=== PATIENT | female | born 1980 | race African-American/Black ===

== ENCOUNTER 2016-12-21 21:25 | Observation (INO) ==
[2016-12-21] MEDS ORDERED: SODIUM CHLORIDE 0.9% 500 ML IV STA (22:06)
--- NOTE | 2016-12-21 22:08 | Emergency Department Note ---
Cedric Salazar Brittany, am scribing for, and in the presence of, Aric Fields MD 22:06. Diamond Salazar Charles R, MD, personally performed the services described in this documentation, ascribed by Soraida Steele in my presence, and it is both accurate and complete . Arrival - Arrival Chief Complaint: Seizure Stated Complaint: seizure ED Nursing Triage Note: Patient to room via ems. EMS states that they were called for a seizure. EMS states that the kids on scene state that patient was shaking for about 10 mins. Patient is A&O x2 she is a little confused. Patient is also complaining of CP, CONTRERAS, and dizziness. Mode of Arrival: Stretcher Limitations: No Limitations Source: Patient, EMS, RN Notes Reviewed Time Seen by Provider: 12/21/16 21:45 - History of Present Illness HPI Narrative: Ms. 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 EMS reports that upon their arrival to the scene children present stated that patient was shaking for about 10 minutes. In room patient does not appear post ictal and is no acute distress. She cannot recall this episode. She complains of a severe headache and reports that this is not typical for her s/p seizure activity. Patient is unsure if she may have hit her head during this episode. Patient reports that she is compliant with her Dilantin and Keppra. On the monitor she is hypertensive with a blood pressure reading of 153/103 mmHg, she denies any medical history significance for HTN. She has no other complaint/pain. Onset (ago): minute(s) Consistency: now resolved Allergies/Adverse Reactions: Allergies Allergy/AdvReac Type Severity Reaction Status Date / Time Penicillins Allergy Unknown Unknown/Unable Verified 12/21/16 21:30 to obtain Home Medications: Home Medications Medication Instructions Recorded Confirmed Type levETIRAcetam [Keppra Xr] 1,500 mg PO BID 11/09/15 12/21/16 History Phenytoin ER Cap [Dilantin Cap] 100 mg PO TID 11/05/16 11/05/16 History Review of System - Review of System 12 point system: reviewed and no additional remarkable complaints except as stated - Review of System Constitutional: Absent: chills, diaphoresis, fever, weakness Eyes: Absent: vision change Head/Ears/Nose/Throat: Absent: nasal drainage, sore throat Respiratory: Absent: respiratory distress Cardiovascular: Absent: chest pain, palpitations Gastrointestinal: Absent: abdominal pain, nausea, vomiting, diarrhea, constipation Genitourinary female: Absent: dysuria, frequency, urgency Musculoskeletal: Absent: arm pain, back pain, leg pain, neck pain Skin: Absent: rash Neurological: Present: as per HPI, headache Psychiatric: Absent: anxiety, depression Hematological/Lymphatic: Absent: easy bleeding, easy bruising Medical,Surgical,& Family Hx - Medical History Cardio: History of: CHF, Hypertension Neurology: History of: Seizures, Vertigo Other: History of: Miscellaneous Medical Problems (morbid obesity) - Social History Smoking Status: Never smoker Frequency of Alcohol Use: None Type of Drug Use: None Exam Vital Signs: Vital Signs Temperature 97.8 F 12/21/16 21:26 Pulse Rate 85 12/21/16 22:05 Respiratory Rate 18 12/21/16 22:05 Blood Pressure 159/86 12/21/16 22:05 O2 Sat by Pulse Oximetry 100 12/21/16 21:26 - General General appearance: alert, in no apparent distress, obese (morbidly obese) - Head Head exam: Present: atraumatic, normocephalic, normal inspection - Eye Eye exam: Present: normal appearance, PERRL, EOMI - ENT ENT exam: Present: normal exam, normal oropharynx - Neck Neck exam: Present: normal inspection, full ROM, trachea midline - Chest Chest inspection: Present: normal inspection, symmetric chest wall rise - Respiratory Respiratory exam: Present: normal lung sounds bilaterally. Absent: rales, rhonchi, wheezes - Cardiovascular Cardiovascular exam: Present: regular rate, normal rhythm, normal heart sounds. Absent: murmur, rubs, gallop - Abdominal Exam Abdominal exam: Present: soft, normal bowel sounds, other (obese abdomen). Absent: distention, tenderness - Extremities Exam Extremities exam: Present: full ROM, pedal edema (+1 edema bilateral lower extremities) - Back Exam Back exam: Present: normal inspection - Neurological Exam Neurological exam: Present: alert, oriented X3, CN II-XII intact. Absent: motor sensory deficit - Psychiatric Psychiatric exam: Present: normal affect, normal mood - Skin Skin exam: Present: warm, dry, intact, normal color Course - Reevaluation(s) Reevaluation #1: New information from the family member patient was slurred speech yesterday and talking out of her head according to family member. This is not something that she usually does. She has history of heart failure hypertension she subtherapeutic on Dilantin level there is a new finding on CT that may be suggestive of a stroke patient placed in the hospital for a workup for neuro consult for possible subacute stroke Time: 23:41 - Consultations Consultation #1: Hospitalist will admit patient Time: 23:42 Results - Labs CBC & BMP: 12/21/16 22:10 Lab Results: I have reviewed the patients labs Labs: Laboratory Tests 12/21/16 22:10 WBC 7.6 RBC 4.56 Hgb 10.2 L Hct 34.4 L MCV 75.4 L MCH 22 L MCHC 29.7 L Plt Count 311 Laboratory Tests 12/21/16 23:01 POC Glucose 91 - Diagnostic Findings Procedure: CT: report reviewed by me (CT Head: New hypoattenuation within the right centrum semiovale has differential considerations including demyelinating disease as well as subacut infarction. MRI brain without intravenous contrast administration is recommended for further characterization.) Critical Care Time Critical Care Time: Yes Total Critical Care Time: 60 Disposition Clinical Impression: Seizure, Subtherapeutic serum dilantin level, New onset confusion, Uncontrolled hypertension, Possible CVA new Case discussed with: patient, patient's family Disposition: Still a Patient Condition: Guarded Time of Disposition: 23:43
[2016-12-21 22:18] LABS: Basophils % 0.3 % (0.0-0.8); Eosinophils # 0.3 10*3/uL (0.0-0.87); Eosinophils % 3.4 % (0.00-10.9); Hematocrit 34.4 VOL% (35.7-47.0); Hemoglobin 10.2 GM/DL (12.0-16.0); Immature Granulocytes % 0.1 %; Immature Granulocytes Absolute 0.01 #; Lymphocytes # 2.2 10*3/uL (1.4-4.0); Lymphocytes % 29.4 % (21.3-54.2); Mean Corpuscular HGB Conc 29.7 GM/DL (32-36); Mean Corpuscular Hemoglobin 22 PG (27-34); Mean Corpuscular Volume 75.4 FL (87-102); Mean Platelet Volume 11.6 FL (9.6-12.0); Monocytes # 0.4 10*3/uL (0.11-0.8); Monocytes % 5.3 % (1.7-12.7); Neutrophils # 4.7 10*3/uL (1.4-7.4); Neutrophils % 61.5 % (38.7-73.9); Platelet Count 311 T/CUMM (130-400); Red Blood Count 4.56 MC/CUMM (3.8-5.5); Red Cell Distribution Width 15.9 % (9.3-17.3); White Blood Count 7.6 T/CUMM (4-12)
--- NOTE | 2016-12-21 22:55 | CT Report ---
CT head/brain wo con Indication: Seizure. Comparison: CT head 07/28/2016. Technique: CT of the brain was performed without administration of intravenous contrast. The CT examination was performed using one or more of the following dose reduction techniques: Automatic exposure control, adjustment of the mA and kV according to patient size, use of acute or iterative reconstruction techniques. Findings: There is a small focal area of hypoattenuation within the right centrum semiovale not previously demonstrated. This measures 13 mm in transverse dimension and 7.8 mm in AP dimension. Cavum septum callosum is demonstrated. The basal cisterns are patent. No significant abnormality is demonstrated to involve the posterior fossa or cerebellum. Fluid attenuation midline posterior fossa has differential considerations including arachnoid cyst, megacisterna magna, and Dandy-Walker variant. Orbits and globes demonstrate no evidence of significant pathology. The paranasal sinuses are clear. No significant abnormality is demonstrated to involve the mastoid air cells. The calvarium and overlying soft tissues demonstrate no evidence of acute pathology. Impression: 1. New hypoattenuation within the right centrum semiovale has differential considerations including demyelinating disease as well as subacute infarction. MRI brain without intravenous contrast administration is recommended for further characterization. 12/21/2016 10:50 PM PROCEDURE INTERPRETED AT [facility] DEPARTMENT OF RADIOLOGY Final Report Signed by: Dr. Marshal Benson
[2016-12-21] MEDS ORDERED: ASPIRIN EC 325 MG TABLET PO STA (23:28)
[2016-12-21] MEDS ORDERED: ASPIRIN EC 325 MG TABLET PO ONE (23:34)
[2016-12-21 23:40] LABS: Alanine Aminotransferase 17 U/L (13-56); Albumin 3.3 G/DL (3.4-5.0); Alkaline Phosphatase 93 U/L (45-117); Aspartate Amino Transferase 15 U/L (0-37); Bilirubin,Total < 0.39 MG/DL (0.2-1.0); Blood Urea Nitrogen 15 MG/DL (7-18); Calcium 8.2 MG/DL (8.5-10.1); Glucose 97 MG/DL (74-106); Magnesium 1.9 MG/DL (1.8-2.4); Osmolality,Calculated 281.3 MOS/KG (273-304); Potassium 4.1 MMOL/L (3.5-5.1); Sodium 141 MMOL/L (136-145); Total Protein 7.4 G/DL (6.4-8.3)
[2016-12-21] MEDS ORDERED: hydrALAZINE 20 MG/1 ML VIAL IV STA (23:44)
[2016-12-21] MEDS ORDERED: hydrALAZINE 20 MG/1 ML VIAL ONE (23:45)
[2016-12-22] MEDS ORDERED: LABETALOL 20 MG/4 ML SYRINGE IV PRN
--- NOTE | 2016-12-22 00:15 | Hospitalist History & Physical ---
Assessment and Plan (1) Seizure Status: Acute Current Visit: Yes (2) Subtherapeutic serum dilantin level Status: Acute Current Visit: Yes (3) Uncontrolled hypertension Status: Acute Assessment and plan: Our plan for this patient will be admitting her to monitored bed. Will get an DC her Dilantin and put her on Vimpat. We will continue her Keppra. Will consult neurology for his input. We will get an MRI of if possible patient is very obese and I do not know if she will fit in the machine. Check a carotid ultrasound reevaluate patient in the morning and adjust plans appropriate. Current Visit: Yes History of Present Illness Chief complaint: Seizure History of present illness: Ms. Curran is a 36 year old female with past medical history consists of seizure disorder and possible congestive heart failure who was in her normal state of health until yesterday. Information was obtained from the ER record since no family was available. Patient seems like she is a poor historian. According to what was told the ER physician patient was talking slurred yesterday. Today the family reported that she has been shaking all over to 10 minutes and that she was talking out of her head. She is currently appropriate no seizure has been witnessed while she is here. I was consulted for admission because her CT scan showed a possible acute stroke. Patient has no neurological deficits. Home Medications Medication Instructions Recorded Confirmed Type levETIRAcetam [Keppra Xr] 1,500 mg PO BID 11/09/15 12/21/16 History Phenytoin ER Cap [Dilantin Cap] 100 mg PO TID 11/05/16 11/05/16 History Allergies Allergy/AdvReac Type Severity Reaction Status Date / Time Penicillins Allergy Unknown Unknown/Unable Verified 12/21/16 21:30 to obtain Medical,Surgical,& Family Hx - Medical History Cardio: History of: CHF, Hypertension Neurology: History of: Seizures, Vertigo Other: History of: Miscellaneous Medical Problems (morbid obesity) - Surgical History Surgical History: noncontributory (none) - Family History Family History: Reports;: Family Cancer, Family Diabetes, Family Heart Disease - Social History Smoking Status: Never smoker Frequency of Alcohol Use: None Type of Drug Use: None 12 point system: reviewed and no additional remarkable complaints except as stated Exam - Constitutional Vitals: Period Temp Pulse Resp BP Sys/Goodman Pulse Ox Last 24 Hr 97.8 F-97.8 F 85-86 16-20 157-159/86-98 100 - General General appearance: alert, in no apparent distress, obese (morbidly obese) - Head Head exam: Present: atraumatic, normocephalic, normal inspection - Eye Eye exam: Present: normal appearance, PERRL, EOMI - ENT ENT exam: Present: normal exam, normal oropharynx - Neck Neck exam: Present: normal inspection, full ROM, trachea midline - Chest Chest inspection: Present: normal inspection, symmetric chest wall rise - Respiratory Respiratory exam: Present: normal lung sounds bilaterally. - Cardiovascular Cardiovascular exam: Present: regular rate, normal rhythm, normal heart sounds. - Abdominal Exam Abdominal exam: Present: soft, normal bowel sounds, other (obese abdomen) - Extremities Exam Extremities exam: Present: full ROM, pedal edema - Back Exam Back exam: Present: normal inspection - Neurological Exam Neurological exam: Present: alert, oriented X3, CN II-XII intact. Absent: motor sensory deficit - Psychiatric Psychiatric exam: Present: normal affect, normal mood - Skin Skin exam: Present: warm, dry, intact, normal color Results - Labs CBC & BMP: 12/21/16 22:10 12/21/16 22:10
[2016-12-22] MEDS ORDERED: LACOSAMIDE 50 MG TABLET PO ONE ×2 (00:30→22:07)
[2016-12-22] MEDS: levETIRAcetam 500 MG TABLET PO SCH ×3 (02:03→20:35)
[2016-12-22 06:34] LABS: Risk Ratio 2.77; VLDL CHOLESTEROL 11.2 MG/DL
[2016-12-22 06:47] LABS: Basophils % 0.3 % (0.0-0.8); Eosinophils # 0.3 10*3/uL (0.0-0.87); Eosinophils % 3.7 % (0.00-10.9); Hematocrit 31.8 VOL% (35.7-47.0); Hemoglobin 9.5 GM/DL (12.0-16.0); Immature Granulocytes % 0.4 %; Immature Granulocytes Absolute 0.03 #; Lymphocytes # 2.1 10*3/uL (1.4-4.0); Lymphocytes % 31.8 % (21.3-54.2); Mean Corpuscular HGB Conc 29.9 GM/DL (32-36); Mean Corpuscular Hemoglobin 22 PG (27-34); Mean Corpuscular Volume 74.5 FL (87-102); Mean Platelet Volume 12.1 FL (9.6-12.0); Monocytes # 0.4 10*3/uL (0.11-0.8); Monocytes % 6.3 % (1.7-12.7); Neutrophils # 3.9 10*3/uL (1.4-7.4); Neutrophils % 57.5 % (38.7-73.9); Platelet Count 238 T/CUMM (130-400); Red Blood Count 4.27 MC/CUMM (3.8-5.5); Red Cell Distribution Width 15.6 % (9.3-17.3); White Blood Count 6.7 T/CUMM (4-12)
[2016-12-22 07:21] LABS: Calcium 8.2 MG/DL (8.5-10.1); Osmolality,Calculated 276.5 MOS/KG (273-304); Potassium 3.8 MMOL/L (3.5-5.1)
--- NOTE | 2016-12-22 07:58 | EKG Report ---
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
[2016-12-22] MEDS: ENOXAPARIN 40 MG/0.4 ML SYRINGE SUBCUT SCH (09:24)
[2016-12-22] MEDS: LACOSAMIDE 50 MG TABLET PO SCH ×2 (09:24→20:34)
[2016-12-22] MEDS: ASPIRIN EC 81 MG TABLET PO SCH (09:24)
--- NOTE | 2016-12-22 12:18 | Neurology Consult Note ---
History of Present Illness History of present illness: Ms. Curran is a 36 year old right-handed -Filipino lady with past medical history significant for seizure disorder and possible congestive heart failure who was in her normal state of health until yesterday. Her sister reported that she was diagnosed with seizure disorder for almost 3-1/2 years ago[address] saw Dr. Storey at first and then later transfer her care to [facility] and see the neurologist up there at the [facility]. According to her sister patient was talking slurred yesterday. She was very confused and disoriented that lasted for 20-30 minutes. It is not clear when of the last time she had a full- blown seizure. They reported that she has been taking Dilantin and Keppra but her Dilantin level is subtherapeutic at 2 and it is not clear whether she is compliant on not. She has also been started on Vimpat and I am not sure she was taking that at home and not however family is not aware of that. For some reason she is not on Dilantin anymore. Home Medications Medication Instructions Recorded Confirmed Type levETIRAcetam [Keppra Xr] 1,500 mg PO BID 11/09/15 12/21/16 History Phenytoin ER Cap [Dilantin Cap] 100 mg PO TID 11/05/16 11/05/16 History Allergies Allergy/AdvReac Type Severity Reaction Status Date / Time Penicillins Allergy Unknown Unknown/Unable Verified 12/21/16 21:30 to obtain 12 point system: reviewed and no additional remarkable complaints except as stated Medical,Surgical,& Family Hx - Medical History Cardio: History of: Hypertension No history of: CHF Neurology: History of: Seizures, Vertigo Other: History of: Miscellaneous Medical Problems (morbid obesity) - Surgical History Abdominal Surgeries: Patient denies: Abdominal Surgery - Family History Family History: Reports;: Family Cancer, Family Diabetes, Family Heart Disease - Social History Smoking Status: Never smoker Frequency of Alcohol Use: None Type of Drug Use: None Exam - Constitutional Vitals: Period Temp Pulse Resp BP Sys/Goodman Pulse Ox Last 24 Hr 97.8 F-98.9 F 85-93 16-20 142-166/85-98 97-100 Exam: GENERAL: Patient is in no acute distress. NECK: Neck is supple. There is no JVD. No carotid bruits present. No thyroid masses. CVS: First and second heart sounds are normal. There is no S3 present. Regular rate and rhythm. RESPIRATORY: Lungs are clear to auscultation without any rales or rhonchi. ABDOMEN: Soft and non-tender. Bowel sounds are present. There is no hepatosplenomegaly. EXT: There is no palpable edema. Peripheral pulses are present. Skin: No rashes Central Nervous system: General: Alert, awake and Oriented x 3 Speech: Fluent Comprehension: Intact and normal Facial expressions: Normal Cranial Nerves: CN1/Olfactory: Normal CN II/ Optic: Normal, Visual Owens unreliable CN III, and : LUBA & EOMI CN V: Normal & intact CN VII: face is symmetric CNVIII: Normal CN XI/X/XI/XII: Intact and Normal Motor: Bulk and Tone is normal. Strength in the right 5/5 Strength in the left 5/5 Sensory: Grossly intact for all the modalities of PP, LT and temp sense Reflexes: 1+ and symmetrical Cerebellar function: Normal finger to nose and heel to mckeon testing. Toes: Equivocal Gait: Not tested at this time Results - Labs CBC & BMP: 12/22/16 04:00 12/22/16 04:00 Assessment and Plan (1) Seizure disorder Status: Acute Assessment and plan: Continue Vimpat and Keppra at the same dose at this time Hold off to Dilantin EEG We will watch her closely Current Visit: Yes
--- NOTE | 2016-12-22 14:03 | Ultrasound Report ---
Referring physician: Yuan Lopez Exam: Carotid ultrasound Date: December 22, 2016 Comparison: None Reason: Stroke Technique: Duplex scan of the carotid arteries was performed using B-Mode/grayscale imaging and Doppler spectral analysis and color flow. Ultrasound images were captured and stored. Findings: No significant plaque is seen at the carotid arteries. The right ICA measures 0.64 cm in diameter, and the left ICA measures 0.51 cm in diameter. The peak systolic velocities are as follows: Right CCA: 64 cm/s Right proximal ICA: 56 cm/s Right distal ICA: 52 cm/s Right ECA: 64 cm/s Left CCA: 73 cm/s Left proximal ICA: 46 cm/s Left distal ICA: 70 cm/s Left ECA: 79 cm/s The peak systolic ICA/CCA velocity ratios are as follows: 0.9 on the right and 1.0 on the left. Antegrade flow is present within both vertebral arteries. Impression: 1. Less than 50% stenosis of both cervical internal carotid arteries. 2. The Society of Radiologists in Ultrasound consensus conference criteria was used. PROCEDURE INTERPRETED AT [facility] DEPARTMENT OF RADIOLOGY Final Report Signed by: Dr. Mo Hollingsworth
--- NOTE | 2016-12-22 15:34 | Hospitalist Progress Note ---
Assessment and Plan (1) Dysfunctional uterine bleeding Status: Acute Assessment and plan: We will get a winding operator see the patient wishes to you. More than likely this is secondary to fibroids. Other causes cannot be excluded. Current Visit: Yes (2) Left breast lump Status: Acute Assessment and plan: This was discovered by a friend which was giving her a bath and that did verifies presence. By protocol cannot order a mammogram for the patient is in the hospital but should be arranged at discharge. Patient will need follow-up with her primary care physician post discharge. Current Visit: Yes (3) Subtherapeutic serum dilantin level Status: Acute Current Visit: Yes (4) Uncontrolled hypertension Status: Acute Assessment and plan: I will start with by looking at the home medication for blood pressure. Obviously is high he needs to be on a calcium channel marcell with use of amlodipine 5 mg daily and addition of hydrochlorothiazide based diuresis ( Dyazide 37.5/25 taking 1 a day. May add a beta-marcell if the blood pressure does not respond. Current Visit: Yes (5) Seizure disorder Status: Acute Current Visit: Yes Hospitalist: Subjective Interval history: Patient has been seen interviewed and examined chart has been reviewed. Patient admitted in the last 18 hours with seizures and subtherapeutic Dilantin levels. Cramps she takes her Dilantin. This is a morbidly obese lady also is reporting very regular menses. It appears that she has been bleeding almost throughout this mass. She has never had a gynecologic evaluation she is a very poor historian does not even remember when the last time she saw her doctor. There is another young lady in the room who just finished giving her a bath am informed is just "a friend." We will try to get a winding operator to see here. Her friend who just gave her both told me that she has a mass in her left breast. My breast examination reveals 2 areas of nodularity one which is behind the nipple a little bit superior to seems to be skin based. The one that is more medial and above the first lesion is more deep. There are 1 or more proximally is bigger than the one on the left there is no nipple discharge no retraction of the nipple and no peau d'orange patient should have a mammogram as soon as she gets out of here and have strongly advised her to see her primary care physician and be referred for evaluation of these breast lesions. Exam - Constitutional Vitals: Period Temp Pulse Resp BP Sys/Goodman Pulse Ox Last 24 Hr 97.8 F-98.9 F 85-93 16-20 142-166/85-108 97-100 General appearance: morbidly obese - Head Head exam: Present: normal inspection, normocephalic, atraumatic - Eye Eye exam: Present: EOMI Pupils: Present: LUBA - ENT ENT exam: Present: normal exam - Neck Neck exam: Present: normal inspection - Respiratory Respiratory exam: Present: clear to auscultation bilaterally - Cardiovascular Cardiovascular exam: Present: regular rate and rhythm - GI/Abdominal GI/Abdominal exam: Present: normal bowel sounds - Extremities Exam Extremities exam: Present: full ROM, other (She has limitation to movement because of her body habitus. Patient is morbidly obese.) - Psychiatric Psychiatric exam: Present: normal affect, normal mood - Skin Skin exam: Present: normal color, warm, dry, other (Multiple healed scar on the skin suggestive for chronic recurrent folliculitis) Results - Labs CBC & BMP: 12/22/16 04:00 12/22/16 04:00 Lab Results: I have reviewed the past 24 hour labs (Notice a chronic appearing anemia could be associated with use of Dilantin) Quality Measures - Stroke Symptom Onset Unknown: No
[2016-12-22] MEDS: TRIAMTERENE/HCTZ 37.5-25 MG CAPSULE PO SCH (16:47)
[2016-12-22] MEDS: amLODIPine 5 MG TABLET PO SCH (16:47)
--- NOTE | 2016-12-22 19:47 | ECHO Report ---
Dorita Curran 12/22/2016 Exam Date: 09:06 Referring Physician: Maria Alejandra RogerTechnologist: Age: 36 Ht (in): 63 Wt (lb): 317 FExam Location[facility] Gender: Echo [id number]: Essential (primary) hypertension, SeIndications:izure, Subtherapeutic dilantin level BP: 159 / 86 HR: 85 SinusRhythm: Technical Quality: IMPRESSIONS Normal left ventricular cavity size. Mild left ventricular hypertrophy. Left ventricular ejection fraction is estimated at 60%. No significant valvular abnormalities. MEASUREMENTS (Male / Female) Normal Values 2D ECHO LV Diastolic Diameter PLAX 3.8 cm 4.2 - 5.9 / 3.9 - 5.3 cm LV Systolic Diameter PLAX 1.9 cm LV Fractional Shortening PLAX 49.3 % IVS Diastolic Thickness 1.2 cm 0.6 - 1.0 / 0.6 - 0.9 cm LVPW Diastolic Thickness 1.7 cm 0.6 - 1.0 / 0.6 - 0.9 cm RV Internal Dim ED PLAX 2.7 cm Aortic Root Diameter 3.2 cm LA Systolic Diameter LX 4.4 cm 3.0 - 4.0 / 2.7 - 3.8 cm FINDINGS Left Ventricle Normal left ventricular cavity size. Mild left ventricular hypertrophy. Left ventricular ejection fraction is estimated at 60%. Insufficient data to estimate diastolic function. Right Ventricle Normal right ventricular size and systolic function. Right Atrium Normal right atrial size. Left Atrium Normal left atrial size. Mitral Valve Morphologically normal mitral valve. Trace mitral valve regurgitation. Aortic Valve Structurally normal aortic valve, without stenosis or insufficiency. Tricuspid Valve Morphologically normal tricuspid valve. Trace tricuspid valve regurgitation. Insufficient data to estimate pulmonary artery systolic pressure. Pulmonic Valve Morphologically normal pulmonic valve without significant stenosis. There is no pulmonic regurgitation. Pericardium Normal pericardium without effusion. Aorta Normal ascending aorta dimension. Ed Zayas (Electronically Signed) 22 Dec 2016 19:46Final Date:
[2016-12-22] MEDS ORDERED: ROSUVASTATIN 20 MG TABLET PO SCH (21:00)
[2016-12-23] MEDS: amLODIPine 5 MG TABLET PO SCH (08:42)
[2016-12-23] MEDS: ASPIRIN EC 81 MG TABLET PO SCH (08:42)
[2016-12-23] MEDS: ENOXAPARIN 40 MG/0.4 ML SYRINGE SUBCUT SCH (08:42)
[2016-12-23] MEDS: TRIAMTERENE/HCTZ 37.5-25 MG CAPSULE PO SCH (08:42)
[2016-12-23] MEDS: levETIRAcetam 500 MG TABLET PO SCH (08:42)
[2016-12-23] MEDS: LACOSAMIDE 50 MG TABLET PO SCH (08:42)
--- NOTE | 2016-12-23 12:01 | Discharge Summary ---
<MartinezStanley - Last Filed: 12/23/16 11:47> Hospital Course - Hospital Course Hospital Course: Ms. Denis is a 36-year-old female who was admitted on 12/22/2016 for further evaluation of possible seizure and/or CVA. Head CT on admission showed new hypoattenuation within the right centrum semiovale concerning for demyelinating disease as well as subacute infarction. On admission the patient was found not to be compliant with her Dilantin and Keppra. She has subtherapeutic Dilantin levels. Echocardiogram revealed ejection fraction estimated to be 60% without any significant valvular abnormalities. Carotid Doppler revealed no hemodynamically significant stenosis. Neurology was consulted. Dr. Hewitt recommended continuing Vimpat and Keppra and holding Dilantin. During hospital stay, the patient was found to have uncontrolled hypertension, dysfunctional uterine bleeding as well as a left breast lump. She was started on amlodipine 5 mg daily and hydrochlorothiazide. Per protocol, a mammogram cannot be ordered for the patient in hospital but should be arranged upon discharge. Patient also needs to follow-up with the beer coil cleaner for DUB. Blood pressure remains stable around 145-150/106-107. At this time patient has reached maximum benefit from hospitalization and stable for discharge. Appropriate follow-up instructions to follow per Dr. Brumfield. - Time spent with patient Time with patient DS: Greater than 30 minutes Specialty Discharge - Follow Up or Referrals Follow up with: Maddy Sellers MD [Physician] - 01/05/17 2:00 pm Discharge Plan - Discharge Data Disposition: Disch To Home/Self Care - Discharge Medications New Triamterene/Hctz 37.5-25 Cap [Dyazide] 1 capsule PO DAILY #30 capsule amLODIPine [Norvasc] 5 mg PO DAILY #30 tablet Rosuvastatin [Crestor] 40 mg PO BEDTIME #30 tablet Continue levETIRAcetam [Keppra Xr] 750 mg PO BID Folic Acid 1 mg PO DAILY Phenytoin ER Cap [Dilantin Cap] 100 mg PO TID - Follow Up or Referral Follow Up: Maddy Sellers MD [Physician] - 01/05/17 2:00 pm - Forms/Instructions Instructions: Phenytoin (By mouth), Dysfunctional Uterine Bleeding (DC), Non- epileptic Seizures (DC), Chronic Hypertension (DC) Exam - Constitutional Vitals: Period Temp Pulse Resp BP Sys/Goodman Pulse Ox Last 24 Hr 96.9 F-98.2 F 80-105 18-20 145-157/84-92 97-100 DS: Provider Date of admission: 12/22/16 00:00 Primary care physician: . No PCP Attending physician on admission: Yuan Lopez MD Consults: 12/22/16 00:06 Consult to Physician [CONS] Routine Comment: sezures and cva Consulting Provider: Helio Hewitt Consult to Specialist Group: Neurology Person Notified: marcel Date Notified: 12/22/16 Time Notified: 09:12/22/16 12:35 Consult to Physician [CONS] Routine Comment: dysfunction of uterine bleeding and knot in left b Consulting Provider: Maddy Sellers Consult to Specialist Group: OBGYN Person Notified: Sridhar Date Notified: 12/22/16 Time Notified: 14:00 Discharging clinician: Stanley SCHMIDT Expected date of discharge: 12/23/16 <Akbar Brumfield - Last Filed: 12/23/16 14:17> Diagnosis - Discharge Diagnosis (1) Dysfunctional uterine bleeding Status: Acute (2) Left breast lump Status: Acute (3) Subtherapeutic serum dilantin level Status: Acute (4) Uncontrolled hypertension Status: Acute (5) Seizure disorder Status: Acute Discharge Plan - Discharge Data Condition at Discharge: Stable Discharge Diet: advance to your usual diet, heart healthy Activity: resume usual activities as tolerated Hygiene: no restrictions Weight Bearing at Discharge: full weight bearing Driving: not until seen by doctor Contact your physician if you experience:: fever over 101, Redness or swelling, Nausea/Vomiting, Bleeding, pain uncontrolled by pain medications Exam - Constitutional General appearance: morbidly obese - Head Head exam: Present: normocephalic, atraumatic - Eye Eye exam: Present: EOMI Pupils: Present: LUBA - ENT ENT exam: Present: normal exam - Neck Neck exam: Present: normal inspection - Respiratory Respiratory exam: Present: clear to auscultation bilaterally - Cardiovascular Cardiovascular exam: Present: regular rate and rhythm - GI/Abdominal GI/Abdominal exam: Present: normal bowel sounds, soft - Extremities Exam Extremities exam: Present: full ROM - Neurological Exam Neurological exam: Present: alert, oriented X3, CN II-XII intact - Psychiatric Psychiatric exam: Present: normal affect, normal mood - Skin Skin exam: Present: normal color, warm, dry
[2016-12-23 13:56] VITALS: BP 153/92
--- NOTE | 2016-12-23 18:35 | Electroencephalogram ---
HISTORY: A 56-year-old patient with a history of seizures, consequences of stroke INTRODUCTION: A digital EEG was performed using the standard 10-20 system of electrode placement wit h one-channel of EKG monitoring. Photic stimulation is performed. DESCRIPTION OF RECORD: The background is somewhat disorganized, but consists of 8 to 8.5 hertz moder ate amplitude bilaterally symmetrical rhythm. Photic stimulation elicit a driving response slower [place] frequencies. Drowsiness and sleep is not achieved. There are no focal, sharp wave, spike, or wa ve activity seen. Hear rate 72 beats per minute. IMPRESSION: NORMAL EEG DURING WAKEFULNESS. CLINICAL CORRELATION: No focal non-epileptiform features are seen. Normal EEG does not rule out a d iagnostic possibility of epilepsy. Clinical correlation is suggested.
== END 2016-12-23 16:27 | disposition home or self-care (01) ==
LOC: EDBD → EDUNIT# → N.EDINP 21:25 → N.ED 21:25 → SUATTDRO 12-22 → N.5E 12-22 00:54
PROVIDERS: ADMIT Internal Medicine; ATTEND Internal Medicine Infectious Disease